=== PATIENT | female | born 1970 | race Caucasian/White ===

== ENCOUNTER → 2016-08-24 | Outpatient (CLI) | payer OTHER | LOC: YCFC.O 10:26 | PROVIDERS: ATTEND Nurse Practitioner Family | DX: G51.0 Bell's palsy (principal); R53.83 Other fatigue; Z13.220 Encounter for screening for lipoid disorders ==

== ENCOUNTER 2016-08-28 17:58 | Emergency (ER) | payer OTHER ==
[2016-08-28] MEDS ORDERED: SODIUM CHLORIDE 0.9% (FLUSH) 10 ML SYG IV PRN (18:10)
[2016-08-28 18:22] VITALS: TEMP 98.5
[2016-08-28] MEDS ORDERED: PANTOPRAZOLE SODIUM IV 40 MG VIAL IV ONE (19:23)
--- NOTE | 2016-08-28 19:46 | ED.PDOC ---
History of Present Illness - General Chief Complaint: Chest Pain/DE Stated Complaint: chest/epigastric pain Time Seen by Provider: 08/28/16 18:42 Source: patient Exam Limitations: no limitations Additional Information: THIS PATIENT COMES TO THE ED WITH INTERMITTENT CP, SHARP SINCE 0430 HRS. PAIN IS SHARP 4/10 AND LAST SECONDS W/O ANY RADIATION, NO SOB, AND NO NAUSEA OR VOMITING. SHE JUST FINISHED A Z-PACK AND ON IRON. TOOK A ZANTAC W/O SIGNIFICANT IMPROVEMENT - History of Present Illness Timing/Duration: other - onset last night at 430 am Severity: mild Location: substernal Prior Chest Pain/Cardiac Workup: no prior chest pain Improving Factors: nothing Worsening Factors: nothing Nitro Today/Relief: no nitro taken today Aspirin Treatment Today: no aspirin today Allergies/Adverse Reactions: Allergies Ibuprofen Allergy (Verified 01/10/15 23:15) Penicillins Adverse Reaction (Verified 05/06/14 20:20) Home Medications: Ambulatory Orders Levothyroxine Sodium 88 mg PO DAILY 05/06/14 Sucralfate Suspension [Carafate Suspension] 1 gm PO ACHS #40 dose 02/18/15 Lansoprazole [Prevacid] 30 mg PO DAILY #30 cap 08/28/16 Review of Systems - Review of Systems Constitutional: Denies: chills, fever EENTM: States: no symptoms reported Respiratory: Denies: short of breath Cardiology: States: chest pain. Denies: edema, palpitations Gastrointestinal/Abdominal: States: abdominal pain. Denies: diarrhea, nausea, vomiting Genitourinary: States: no symptoms reported Musculoskeletal: States: no symptoms reported Skin: States: no symptoms reported Neurological: States: no symptoms reported Endocrine: States: no symptoms reported Hematologic/Lymphatic: States: no symptoms reported All other Systems: Reviewed and Negative Past Medical History (General) - Patient Medical History Hx Seizures: No Hx Stroke: No Hx Dementia: No Hx Asthma: No Hx of COPD: No Hx Cardiac Disorders: No Hx Congestive Heart Failure: No Hx Pacemaker: No Hx Hypertension: No Hx Thyroid Disease: Yes Hx Diabetes: No Hx Gastroesophageal Reflux: No Hx Renal Disease: No Hx Cancer: No Hx of HIV: No Hx Hepatitis C: No Hx MRSA: No - Vaccination History Hx Tetanus, Diphtheria Vaccination: Yes Hx Influenza Vaccination: Yes Hx Pneumococcal Vaccination: No - Social History Hx Tobacco Use: No Hx Alcohol Use: No Hx Substance Use: No Hx Substance Use Treatment: No Hx Depression: No - Female History Hx Last Menstrual Period: 07/11/16 Patient : No - Triage Comment ED Triage Comment: Pt states that she started having chest pain at sternum/ epigastric pain last night and right now no pain but when she has the pain rates it at an 8 on pain scale. Family Medical History - Family History Mother Family History: Unknown Living Status: Unknown Hx Cardiac Disease: Yes Physical Exam - Physical Exam General Appearance: Alert, Anxious, Lethargic Eyes, Ears, Nose, Throat Exam: PERRL/EOMI, pharynx normal Neck: non-tender, normal inspection Respiratory: chest non-tender, lungs clear, normal breath sounds Cardiovascular/Chest: normal peripheral pulses, regular rate, rhythm, no edema, no gallop, no JVD, no murmur Gastrointestinal/Abdominal: normal bowel sounds, non tender, soft, no organomegaly, no pulsatile mass Extremity: normal range of motion, non-tender, normal inspection, no pedal edema , no calf tenderness 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 IMPRESSION: NORMAL EKG. THERE ARE NO TRACES TO COMPARE WITH. TROPONIN I IS LESS THAN 0.02, REST OF THE LAB IS NORMAL. CXR HAS NO ACUTE PROCESS. Departure - Departure Clinical Impression: Atypical chest pain Acid reflux Qualifiers: Esophagitis presence: esophagitis presence not specified Qualifier Code: (K21.9 ) Gastro-esophageal reflux disease without esophagitis Time of Disposition: 19:53 Disposition: Discharge to Home or Self Care Condition: Good Departure Forms: ED Discharge - Pt. Copy, Patient Portal Self Enrollment Activity: increase activity as tolerated Prescriptions: Lansoprazole [Prevacid] 30 mg PO DAILY #30 cap Home Medications: Ambulatory Orders Levothyroxine Sodium 88 mg PO DAILY 05/06/14 Sucralfate Suspension [Carafate Suspension] 1 gm PO ACHS #40 dose 02/18/15 Lansoprazole [Prevacid] 30 mg PO DAILY #30 cap 08/28/16
--- NOTE | 2016-08-28 19:52 | RAD ---
EXAM DESCRIPTION: X-RAY CHEST- One View CLINICAL HISTORY: Chest pain. COMPARISON: None available at present TECHNIQUE: Single view of the chest. FINDINGS: There are no discrete air space infiltrates, pneumothoraces or pleural effusions. The pulmonary vascularity is normal. The cardiomediastinal silhouette is unremarkable. IMPRESSION: There are no acute lung parenchymal findings. Electronically signed by: Gordo Lozano MD 08/28/2016 19:50
[2016-08-28 20:10] VITALS: BP 114/64
[2016-08-28] MEDS ORDERED: methylPREDNISolone SODIUM SUC 125 MG/2 ML VIAL IM ONE (20:11)
[2016-08-28] MEDS ORDERED: cefTRIAXone SODIUM 1 GM VIAL IM ONE (20:11)
[2016-08-28 20:31] VITALS: O2SAT 96
== END 2016-08-28 20:10 | disposition home or self-care (01) ==
LOC: ER 17:58
DX: K21.9 Gastro-esophageal reflux disease without esophagitis (principal); R07.89 Other chest pain; E07.9 Disorder of thyroid, unspecified; Z88.0 Allergy status to penicillin; Z88.6 Allergy status to analgesic agent; Z79.899 Other long term (current) drug therapy

== ENCOUNTER 2016-09-23 11:31 | Emergency (ER) | payer OTHER ==
[2016-09-23 11:56] VITALS: BP 119/85; TEMP 98.5; O2SAT 95
[2016-09-23] MEDS ORDERED: LIDOCAINE VIS-MYLANTA 30 ML UD PO ONE (11:57)
--- NOTE | 2016-09-23 12:51 | RAD ---
NAME: LUDY DE LA PAZTPROCEDURE: XR ABDOMEN 2 VIEWS SUPINE ERECTORDER DATE: 09/23/2016 11:56 AM CSTACCESSION NUMBER: [id number] Clinical History: abd pain Indication: Same as above Comparison: 04/28/2017 Technique: Two views of the abdomen and pelvis and 1.0 views of the chest were done. Findings: There is no gross evidence of free air in the abdomen or the pelvis . The small and large bowel gas pattern does not show any evidence of obstruction, ileus or bowel wall thickening. There is no visualization of radiopaque calculi in the outline of the urinary tract. There is mild retained fecal material in the proximal large bowel. There is evidence of phleboliths in the pelvis. Degenerative changes seen in the lower lumbar spine There are no discrete airspace infiltrates, pleural effusions or pneumothoraces. The cardiac mediastinal silhouette is unremarkable. Impression: There are no acute findings in the chest, abdomen and pelvis Location of Interpretation: [id number] Electronically signed by: Gordo Lozano MD 09/23/2016 12:49 PM FOOD PROCESSING SCIENTIST
--- NOTE | 2016-09-23 13:02 | ED.PDOC ---
History of Present Illness - General Chief Complaint: Abdominal Pain Time Seen by Provider: 09/23/16 11:34 Source: patient Exam Limitations: no limitations - History of Present Illness Initial Comments: The patient is a 46-year-old female presenting to the emergency room secondary to abdominal pain.the patient is primarily having abdominal pain from the epigastric area down around the right side to the right side of her back. Appetite has not been good. She has not thrown up. She is not having nausea. She doesn't think she's constipated. Pain does not seem to be related to eating or drinking. It may be mildly related to movement and she has been exerting herself differently at work. No fevers. No chest pain or shortness of breath. No jaundice. No history of any hepatitis. No new medications. She had a urinalysis at her primary care doctor's office before coming here and she reports was clear. Severity: moderate Improving Factors: immobilization Worsening Factors: movement Associated Symptoms: loss of appetite, malaise Allergies/Adverse Reactions: Allergies Ibuprofen Allergy (Verified 01/10/15 23:15) Penicillins Adverse Reaction (Verified 05/06/14 20:20) Home Medications: Ambulatory Orders Levothyroxine Sodium 88 mg PO DAILY 05/06/14 Review of Systems - Review of Systems Constitutional: States: malaise EENTM: States: no symptoms reported Respiratory: States: no symptoms reported Cardiology: States: no symptoms reported Gastrointestinal/Abdominal: States: see HPI Genitourinary: States: no symptoms reported Musculoskeletal: States: no symptoms reported Skin: States: no symptoms reported Neurological: States: no symptoms reported All other Systems: No Change from Baseline Past Medical History (General) - Patient Medical History Hx Seizures: No Hx Stroke: No Hx Dementia: No Hx Asthma: No Hx of COPD: No Hx Cardiac Disorders: No Hx Congestive Heart Failure: No Hx Pacemaker: No Hx Hypertension: No Hx Thyroid Disease: Yes - Fabio's Hx Diabetes: No Hx Gastroesophageal Reflux: No Hx Renal Disease: No Hx Cancer: No Hx of HIV: No Hx Hepatitis C: No Hx MRSA: No - Vaccination History Hx Tetanus, Diphtheria Vaccination: Yes Hx Influenza Vaccination: Yes - 2016 Hx Pneumococcal Vaccination: No - Social History Hx Tobacco Use: No Hx Alcohol Use: No Hx Substance Use: No Hx Substance Use Treatment: No Hx Depression: No - Female History Patient is a Female of Child Bearing Age (10 -59 yrs old): Yes Hx Last Menstrual Period: 07/11/16 Patient : No Family Medical History - Family History Mother Family History: Unknown Living Status: Still Living Hx Cardiac Disease: Yes Physical Exam - Physical Exam General Appearance: Alert, Comfortable, No apparent distress Eye Exam: bilateral normal Ears, Nose, Throat: hearing grossly normal, normal ENT inspection, normal pharynx Neck: non-tender, full range of motion, supple Respiratory: chest non-tender, lungs clear, normal breath sounds, no respiratory distress, no accessory muscle use Cardiovascular/Chest: normal peripheral pulses, regular rate, rhythm, no edema Peripheral Pulses: radial,right: 2+, radial,left: 2+, dorsalis pedis,right: 2+, dorsalis pedis,left: 2+ Gastrointestinal/Abdominal: soft, other - the patient has epigastric and mild periumbilical discomfort palpation. No right upper quadrant discomfort palpation. No definite rebound or peritoneal signs. No costovertebral angle tenderness. Rectal Exam: deferred Back Exam: normal inspection, no CVA tenderness Extremity: normal range of motion, non-tender, normal inspection, no pedal edema , no calf tenderness, normal capillary refill Neurologic: alert, normal mood/affect, oriented x 3 Skin Exam: normal color Comments: Vital Signs - 24 hr 09/23/16 11:55 Temperature 98.5 F Pulse Rate [ 77 Left Radial] Respiratory 20 Rate Blood Pressure 119/85 [Left Arm] O2 Sat by Pulse 95 Oximetry Progress - Progress Progress: 09/23/16 13:03 the patient is a 46-year-old female presenting to the emergency room secondary to abdominal pain. Lab work and x-ray appear reassuring. Physical exam and clinical history is more consistent with gastritis and/or constipation giving symptoms than with gallbladder dysfunction at this time. White blood cell count is normal. Liver function tests are normal. Amylase and lipase are normal. X-ray is consistent with constipation. The patient has agreed to get cleaned out at home. Additionally I would recommend that she take a stomach medication once or twice daily for the next 2 weeks such as Zantac or Pepcid or Prilosec. Obviously if her symptoms are worsening instead of improving then a CT scan may be obtained. Given her young age however I recommend that we proceed with a course above for now, rather than exposing her to significant radiation that may not be warranted. return to the ER for any acute worsening. Follow up with primary care doctor early next week. - Results/Orders Results/Orders: Laboratory Tests 09/23/16 09/23/16 11:56 11:57 WBC 6.4 RBC 4.45 Hgb 14.5 Hct 43.3 MCV 97.3 MCH 32.7 H MCHC 33.6 RDW 13.4 Plt Count 292 MPV 6.8 L Absolute Neuts (auto) 4.00 Absolute Lymphs (auto) 1.60 Absolute Monos (auto) 0.60 Absolute Eos (auto) 0.10 Absolute Basos (auto) 0.00 Neutrophils % 63.4 Lymphocytes % 25.5 Monocytes % 9.7 H Eosinophils % 0.9 L Basophils % 0.5 Sodium 139 Potassium 3.8 Chloride 105 Carbon Dioxide 27 Anion Gap 10.8 L BUN 8 Creatinine 0.75 BUN/Creatinine Ratio 10.7 Random Glucose 93 Serum Osmolality 275.6 Calcium 9.0 Total Bilirubin 0.5 AST 28 ALT 36 Alkaline Phosphatase 47 Serum Total Protein 7.4 Albumin 4.2 Globulin 3.2 Albumin/Globulin Ratio 1.3 Amylase 53 Lipase 23 Serum HCG, Qual Negative abdominal x-rays consistent with constipation. No obstruction or perforation noted. Departure - Departure Clinical Impression: Constipation Qualifiers: Constipation type: unspecified constipation type Qualifier Code: (K59.00) Constipation, unspecified Abdominal pain Qualifiers: Abdominal location: epigastric Qualifier Code: (R10.13) Epigastric pain Disposition: Discharge to Home or Self Care Condition: Fair Departure Forms: ED Discharge - Pt. Copy, Patient Portal Self Enrollment Instructions: DI for Abdominal Pain-Adult Diet: regular diet Activity: increase activity as tolerated Referrals: Kassie Ariza NP [Primary Care Provider] - 1-5 Days Home Medications: Ambulatory Orders Levothyroxine Sodium 88 mg PO DAILY 05/06/14 Additional Instructions: the patient is a 46-year-old female presenting to the emergency room secondary to abdominal pain. Lab work and x-ray appear reassuring. Physical exam and clinical history is more consistent with gastritis and/or constipation giving symptoms than with gallbladder dysfunction at this time. White blood cell count is normal. Liver function tests are normal. Amylase and lipase are normal. X-ray is consistent with constipation. The patient has agreed to get cleaned out at home. Additionally I would recommend that she take a stomach medication once or twice daily for the next 2 weeks such as Zantac or Pepcid or Prilosec. Obviously if her symptoms are worsening instead of improving then a CT scan may be obtained. Given her young age however I recommend that we proceed with a course above for now, rather than exposing her to significant radiation that may not be warranted. return to the ER for any acute worsening. Follow up with primary care doctor early next week.
--- NOTE | 2016-10-15 23:52 | RAD ---
NAME: LUDY DE LA PAZTPROCEDURE: XR ABDOMEN 2 VIEWS SUPINE ERECTORDER DATE: 09/23/2016 11:56 AM CSTACCESSION NUMBER: [id number] Clinical History: abd pain Indication: Same as above Comparison: 04/28/2017 Technique: Two views of the abdomen and pelvis and 1.0 views of the chest were done. Findings: There is no gross evidence of free air in the abdomen or the pelvis . The small and large bowel gas pattern does not show any evidence of obstruction, ileus or bowel wall thickening. There is no visualization of radiopaque calculi in the outline of the urinary tract. There is mild retained fecal material in the proximal large bowel. There is evidence of phleboliths in the pelvis. Degenerative changes seen in the lower lumbar spine There are no discrete airspace infiltrates, pleural effusions or pneumothoraces. The cardiac mediastinal silhouette is unremarkable. Impression: There are no acute findings in the chest, abdomen and pelvis Location of Interpretation: [id number] Electronically signed by: Gordo Lozano MD 09/23/2016 12:49 PM TAX INVESTIGATOR
--- NOTE | 2016-10-16 06:09 | RAD ---
NAME: LUDY DE LA PAZTPROCEDURE: XR ABDOMEN 2 VIEWS SUPINE ERECTORDER DATE: 09/23/2016 11:56 AM CSTACCESSION NUMBER: [id number] Clinical History: abd pain Indication: Same as above Comparison: 04/28/2017 Technique: Two views of the abdomen and pelvis and 1.0 views of the chest were done. Findings: There is no gross evidence of free air in the abdomen or the pelvis . The small and large bowel gas pattern does not show any evidence of obstruction, ileus or bowel wall thickening. There is no visualization of radiopaque calculi in the outline of the urinary tract. There is mild retained fecal material in the proximal large bowel. There is evidence of phleboliths in the pelvis. Degenerative changes seen in the lower lumbar spine There are no discrete airspace infiltrates, pleural effusions or pneumothoraces. The cardiac mediastinal silhouette is unremarkable. Impression: There are no acute findings in the chest, abdomen and pelvis Location of Interpretation: [id number] Electronically signed by: Gordo Lozano MD 09/23/2016 12:49 PM DIRECTOR OF IT OPERATIONS
== END 2016-09-23 13:12 | disposition home or self-care (01) ==
LOC: ER 11:31
DX: K59.00 Constipation, unspecified (principal); E06.3 Autoimmune thyroiditis; Z88.6 Allergy status to analgesic agent; Z88.0 Allergy status to penicillin; Z79.899 Other long term (current) drug therapy

== ENCOUNTER → 2016-10-06 | Outpatient (CLI) | payer OTHER | END | disposition home or self-care (01) | LOC: YCFC.O 18:21 | PROVIDERS: ATTEND Nurse Practitioner Family | DX: R07.9 Chest pain, unspecified (principal); E06.3 Autoimmune thyroiditis; R10.11 Right upper quadrant pain ==

== ENCOUNTER → 2016-10-17 | Outpatient (CLI) | payer OTHER | END | disposition home or self-care (01) | LOC: LAB.O 15:11 | PROVIDERS: ATTEND Specialist | DX: G43.009 Migraine without aura, not intractable, without status migrainosus (principal); H02.409 Unspecified ptosis of unspecified eyelid; G43.109 Migraine with aura, not intractable, without status migrainosus ==

== ENCOUNTER → 2016-11-06 | Outpatient (CLI) | payer OTHER ==
--- NOTE | 2016-11-07 07:22 | US ---
EXAM DESCRIPTION: Soft Tissue,Head/Neck CLINICAL HISTORY: 46 years Female, ENLARGED LYMPHNODES COMPARISON: None. FINDINGS: Ultrasound of the right side of the neck was performed. No adenopathy or other solid mass is identified at the area of concern. There is no fluid collection or interstitial edema. Normal vascular structures are noted. IMPRESSION: No sonographic evidence of right-sided cervical adenopathy. Electronically signed by: Darrell Jarrell MD 11/07/2016 7:21 AM CDT
--- NOTE | 2016-11-07 07:25 | US ---
EXAM DESCRIPTION: Thyroid CLINICAL HISTORY: 46 years Female, ENLARGED LYMPHNODES COMPARISON: None. FINDINGS: The right thyroid lobe measures just over 5 cm in length. It is of slightly heterogeneous internal echogenicity with a questionable 6 mm nodule in its inferior pole. The thyroid isthmus is not thickened, measuring 3 or 4 mm AP diameter. The left thyroid lobe measures just under 5 cm in length. There is no discrete left thyroid nodule. No color Doppler images of the thyroid were obtained to evaluate blood flow. IMPRESSION: Diffusely heterogeneous appearance of the thyroid with a questionable 6 mm solid or complex cystic nodule in the inferior pole of the right thyroid lobe. Otherwise unremarkable exam. Follow-up ultrasound in 6-9 months is recommended to document stability. Electronically signed by: Darrell Jarrell MD 11/07/2016 7:24 AM CDT
== END | disposition home or self-care (01) ==
LOC: YCFC.O 14:15
PROVIDERS: ATTEND Nurse Practitioner Family
DX: R59.0 Localized enlarged lymph nodes (principal)

== ENCOUNTER → 2016-12-18 | Outpatient (CLI) | payer OTHER ==
--- NOTE | 2016-12-19 16:07 | MAM ---
History: Well woman exam. Date of exam: 12/18/2016 Services provided: Bilateral full field digital screening mammography. CAD, the images were reviewed with R2 computer aided detection. FINDINGS: Glandular tissue is glandular in contour with increased mammographic density. Comparison with 2014 exam. No dominant mass, architectural distortion or clustered microcalcifications. IMPRESSION: Benign exam. Recommendation: Routine annual mammography. BIRAD CATEGORY: 2 BENIGN Electronically signed by: Alicia Conklin MD 12/19/2016 4:05 PM CDT
== END ==
LOC: MAMMO 15:33
PROVIDERS: ATTEND Nurse Practitioner Family
DX: Z12.31 Encounter for screening mammogram for malignant neoplasm of breast (principal)

== ENCOUNTER → 2016-12-21 | Outpatient (CLI) | payer OTHER | LOC: LAB.O 09:14 | PROVIDERS: ATTEND Internal Medicine Endocrinology, Diabetes & Metabolism | DX: E03.9 Hypothyroidism, unspecified (principal) ==

== ENCOUNTER → 2017-09-28 | Outpatient (CLI) | payer OTHER | LOC: LAB.O 09:10 | PROVIDERS: ATTEND Internal Medicine Cardiovascular Disease | DX: R00.2 Palpitations (principal); R00.0 Tachycardia, unspecified ==

== ENCOUNTER → 2017-12-20 | Outpatient (CLI) | payer OTHER ==
--- NOTE | 2017-12-24 14:54 | MAM ---
EXAM DESCRIPTION: 3D Screening BILATERAL : Digital Mammography. CLINICAL HISTORY: 47 years Female ANNUAL SCREENING . No complaints. No family history of breast cancer. Premenopausal. No HRT. COMPARISON: 2-D digital screening bilateral study 12/18/2016. Report from prior examination also reviewed. TECHNIQUE: Bilateral CC and MLO projection full-field images, 3-D tomosynthesis digital mammographic technique. Also bilateral synthesized CC/ MLO full-field images. CAD not utilized. FINDINGS: The breast parenchymal density pattern is: Scattered areas of fibroglandular density. No skin thickening or nipple retraction bilateral axillary lymph nodes. Bilateral solitary microcalcifications. No focal, stellate mass or density, focal asymmetry , and no suspicious microcalcifications bilaterally. Stable mammograms compared to prior study, taking into account differences in mammographic technique IMPRESSION: BI-RADS CATEGORY: 2 - BENIGN FINDINGS. FOLLOW UP: Routine digital bilateral screening, one year interval from December 2017. Written communication explaining the IMPRESSION and follow-up, will be mailed to the patient and referring health care provider. According to the [employer], yearly mammograms are recommended starting at age 40 and continuing as long as a woman is in good health. Any breast change noted on a breast self-exam should be reported promptly to the patient's healthcare provider. Breast MRI is recommended for women with an approximately 20-25% or greater lifetime risk of breast cancer, including women with a strong family history of breast or ovarian cancer and women who have been treated for Hodgkin's disease. A negative mammographic report should not delay tissue diagnosis in patients with significant clinical history or physical findings. Extremely dense breast tissue limits the sensitivity of digital mammography. Electronically signed by: Cuco Michelle MD 12/24/2017 2:52 PM CDT
== END ==
LOC: MAMMO 14:00
PROVIDERS: ATTEND Nurse Practitioner Family
DX: Z12.31 Encounter for screening mammogram for malignant neoplasm of breast (principal)